=== PATIENT | male | born 1975 | race Caucasian/White ===

== ENCOUNTER 2019-02-01 05:55 | Emergency (ER) | payer SELFPAY ==
[2019-02-01 06:09] VITALS: BP 132/92; PULSE 65; TEMP 98.7; BMI 28.3
--- NOTE | 2019-02-01 06:24 | PDOC ---
History of Present Illness - General Chief Complaint: Choking Sensation Stated Complaint: FOREIGN BODY,THROAT Time Seen by Provider: 02/01/19 06:10 History Source: Patient Exam Limitations: No Limitations - History of Present Illness Initial Comments: 02/01/19 06:17 pt is a 43yo M with no significant PMH presenting to ED with sensation of chicken bone stuck in his throat. Pt said he was drinking chicken soup at around 10pm and said he threw away bigger pieces of bone. He said he tried swallowing oil, soaked bread but nothing helped. He woke up and tried to cough it out but it did not help. He feels the sensation on the R side of his throat and location has not changed. Denies shortness of breath, choking sensation, difficulty breathing, chest pain, syncope, throat pain, difficulty swallowing. PMH: none PSH: appendectomy Meds: none Allergies: nkda Past History - Past Medical History Allergies/Adverse Reactions: Allergies Allergy/AdvReac Type Severity Reaction Status Date / Time No Known Allergies Allergy Verified 02/01/19 06:07 Home Medications: Ambulatory Orders No Home Medications 0 dose .ROUTE UTDICT 05/19/13 - Suicide/Smoking/Psychosocial Hx Smoking Status: No Smoking History: Never smoked Have you smoked in the past 12 months: No Number of Cigarettes Smoked Daily: 0 Information on smoking cessation initiated: No Hx Alcohol Use: No Drug/Substance Use Hx: No Review of Systems - Review of Systems Constitutional: No: Symptoms Reported HEENTM: Yes: See HPI Respiratory: No: Cough, Shortness of Breath, Wheezing, Hemoptysis Cardiac (ROS): No: Chest Pain, Lightheadedness, Palpitations, Syncope ABD/GI: Yes: See HPI : No: Symptoms Reported Musculoskeletal: No: Symptoms Reported Integumentary: No: Symptoms Reported Neurological: No: Symptoms reported *Physical Exam - Vital Signs Last Vital Signs Temp Pulse Resp BP Pulse Ox 98.7 F 65 20 132/92 98 02/01/19 06:07 02/01/19 06:07 02/01/19 06:07 02/01/19 06:07 02/01/19 06:07 - Physical Exam General Appearance: Yes: Nourished, Appropriately Dressed. No: Apparent Distress HEENT: positive: EOMI, FRANCISCO, Pharynx Normal, Other (could not visualize foreign body). negative: Pharyngeal Erythema, Tonsillar Exudate, Tonsillar Erythema, Excessive drooling Neck: positive: Trachea midline, Supple, Other (no neck tenderness). negative: Lymphadenopathy (R), Lymphadenopathy (L) Respiratory/Chest: positive: Lungs Clear, Normal Breath Sounds Cardiovascular: positive: Regular Rhythm, Regular Rate, S1, S2. 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 intact, Fully Oriented, Alert, Normal Mood/ Affect, Normal Response, Motor Strength 5/5 Moderate Sedation - Procedure Monitoring Vital Signs: Procedure Monitoring Vital Signs Temperature 98.7 F 02/01/19 06:07 Pulse Rate 65 02/01/19 06:07 Respiratory Rate 20 02/01/19 06:07 Blood Pressure 132/92 02/01/19 06:07 O2 Sat by Pulse Oximetry (%) 98 02/01/19 06:07 ED Treatment Course - RADIOLOGY Radiology Studies Ordered: Category Date Time Status SOFT TISSUE NECK CT W/O CONTR [CT] Stat CT Scan 02/01/19 06:16 Ordered Medical Decision Making - Medical Decision Making 02/01/19 06:24 pt is a 43yo M with no significant PMH presenting to ED with sensation of chicken bone stuck in his throat. Pt said he was drinking chicken soup at around 10pm and said he threw away bigger pieces of bone. He said he tried swallowing oil, soaked bread but nothing helped. He woke up and tried to cough it out but it did not help. He feels the sensation on the R side of his throat and location has not changed. Denies shortness of breath, choking sensation, difficulty breathing, chest pain, syncope, throat pain, difficulty swallowing. Vitals: wnl PE: benign, could not visualize foreign body -CT neck low suspicion that fb is in the trachea. 02/01/19 06:44 No FB. Pt able to swallow without difficulty and breathe without difficulty. Will refer to GI. Pt can be dc home *DC/Admit/Observation/Transfer Diagnosis at time of Disposition: Foreign body sensation in throat - Discharge Dispostion Disposition: HOME Condition at time of disposition: Good Decision to Admit order: No - Referrals Referrals: Julien Green MD [Staff Physician] - - Patient Instructions Additional Instructions: You were seen in the emergency room today for sensation of something stuck in your throat. The CT scan did not show anything stuck. I recommend that you make an appointment with a GI doctor if you continue to have this sensation. Dr. Green You can take Tylenol or Motrin for pain. Come back to the emergency room if pain gets worse, you have difficulty swallowing, you have difficulty breathing, the neck looks swollen or if any new concerning symptom develops. Thank you - Post Discharge Activity
--- NOTE | 2019-02-01 06:24 | PDOC ---
Attending Attestation - Resident Resident Name: Obdulia Wild - ED Attending Attestation I have performed the following: I have examined & evaluated the patient, The case was reviewed & discussed with the resident, I agree w/resident's findings & plan - HPI HPI: 02/01/19 06:24 43-year-old male with a foreign body sensation to the right side of his throat, patient states he thinks he swallowed a chicken bone well eating soup. There's been no vomiting. - Physicial Exam PE: 02/01/19 06:25 Agree with resident exam - Medical Decision Making 02/01/19 06:25 43-year-old male with a foreign body sensation to throat Plain CT scan of the neck ordered Patient has had no vomiting and is able to tolerate liquids, likely discharge home pending CT scan results with outpatient follow-up
== END 2019-02-01 06:49 | disposition home or self-care (01) ==
LOC: JER 05:55
DX: R09.89 Other specified symptoms and signs involving the circulatory and respiratory systems (principal)
CPT/HCPCS: 70490-TC; 99283-25

== ENCOUNTER 2019-02-08 14:33 | Emergency (ER) | payer OTHER ==
[2019-02-08 14:40] VITALS: TEMP 99.3; BMI 28.3
--- NOTE | 2019-02-08 15:06 | PDOC ---
History of Present Illness - General Chief Complaint: Sore Throat Stated Complaint: LOSE VOICE Time Seen by Provider: 02/08/19 14:48 History Source: Patient Exam Limitations: No Limitations - History of Present Illness Initial Comments: 02/08/19 15:07 Patient came for evaluation of acute onset of swelling and severe pain to his throat. States in December was treated for severe strep throat with amoxicillin and Keflex to have resolved, January 19 came in with some itching episode which resolved, but states this morning woke up with another sore throat which is progressively worsened to where now has difficulty swallowing his secretions. Patient has obvious swelling to the outside of his face. Throat beefy-red with asthma large peritonsillar left abscess with obstruction to uvula and intubated midpoint pharynx area patient talking with a potato voice, and is febrile. DUe to the initial exam and potential airway compromise, moved pateint to Main ER for eval / treatment 02/08/19 15:22 Timing/Duration: 24 hours Severity: moderate, severe Associated Symptoms: denies: fever/chills Past History - Travel Traveled outside of the country in the last 30 days: No Close contact w/someone who was outside of country & ill: No - Past Medical History Allergies/Adverse Reactions: Allergies Allergy/AdvReac Type Severity Reaction Status Date / Time No Known Allergies Allergy Verified 02/01/19 06:07 Home Medications: Ambulatory Orders NK [No Known Home Medication] 02/08/19 COPD: No - Immunization History Immunization Up to Date: Yes - Suicide/Smoking/Psychosocial Hx Smoking Status: No Smoking History: Never smoked Have you smoked in the past 12 months: No Number of Cigarettes Smoked Daily: 0 Information on smoking cessation initiated: No Hx Alcohol Use: No Drug/Substance Use Hx: No Review of Systems - Review of Systems Able to Perform ROS?: Yes Is the patient limited Bulgarian proficient: Yes Constitutional: Yes: Symptoms Reported, See HPI, Chills, Fever, Loss of Appetite , Malaise HEENTM: Yes: Symptoms Reported, See HPI, Throat Pain, Throat Swelling, Mouth Pain, Difficulty Swallowing Respiratory: Yes: Symptoms reported, See HPI. No: Cough : No: Symptoms Reported Musculoskeletal: No: Symptoms Reported Integumentary: Yes: Symptoms Reported, See HPI Neurological: No: Symptoms reported All Other Systems: Reviewed and Negative *Physical Exam - Vital Signs Last Vital Signs Temp Pulse Resp BP Pulse Ox 99.3 F 92 H 20 140/81 100 02/08/19 14:36 02/08/19 14:36 02/08/19 14:36 02/08/19 14:36 02/08/19 14:36 - Physical Exam General Appearance: Yes: Nourished, Appropriately Dressed, Apparent Distress, Moderate Distress, Severe Distress HEENT: positive: FRANCISCO, Muffled/Hoarse voice, Pharyngeal Erythema, Other (hot potato voice left tonsil swollen with displacing the uvula). 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-XII NML intact, Fully Oriented, Alert, Normal Mood/ Affect, Normal Response, Motor Strength 5/5 Moderate Sedation - Procedure Monitoring Vital Signs: Procedure Monitoring Vital Signs Temperature 99.3 F 02/08/19 14:36 Pulse Rate 92 H 02/08/19 14:36 Respiratory Rate 20 02/08/19 14:36 Blood Pressure 140/81 02/08/19 14:36 O2 Sat by Pulse Oximetry (%) 100 02/08/19 14:36 ED Treatment Course - LABORATORY CBC & Chemistry Diagram: 02/08/19 15:35 02/08/19 15:35 *DC/Admit/Observation/Transfer Diagnosis at time of Disposition: Peritonsillar abscess - Discharge Dispostion Disposition: TRANSFER ACUTE CARE/OTHER HOSP Condition at time of disposition: Good - Referrals - Patient Instructions - Post Discharge Activity
[2019-02-08] MEDS ORDERED: DEXAMETHASONE SOD PHOSPHATE 10 MG/1 ML VIAL IVPUSH ONE (15:20)
[2019-02-08] MEDS ORDERED: CLINDAMYCIN 600MG PREMIX IVPB 600 MG/50 ML BAG IVPB ONE ×2 (15:21→16:22)
[2019-02-08] MEDS ORDERED: KETOROLAC TROMETHAMINE 30 MG/1 ML VIAL IVPUSH ONE (15:21)
[2019-02-08] MEDS ORDERED: DEXAMETHASONE SOD PHOSPHATE 10 MG/1 ML VIAL ONE (15:27)
[2019-02-08] MEDS ORDERED: KETOROLAC TROMETHAMINE 30 MG/1 ML VIAL ONE (15:27)
[2019-02-08 15:47] LABS: BASO % 0.5 % (0-2.0); EOS % 0.1 % (0-4.5); HEMOGLOBIN 13.9 GM/dL (11.7-16.9); MCH 27.7 pg (25.7-33.7); MCHC 33.9 g/dl (32.0-35.9); MEAN CELL VOLUME 81.8 fl (80-96); MEAN PLT VOLUME 8.2 fl (7.5-11.1); MONO % 4.5 % (3.8-10.2); NEUT % 89.9 % (42.8-82.8); PLATELET COUNT 265 K/MM3 (134-434); RBC 5.01 M/mm3 (4.00-5.60); RDW 14.7 % (11.9-15.9); WHITE BLOOD COUNT 17.7 K/mm3 (4.0-10.0)
[2019-02-08] MEDS ORDERED: SODIUM CHLORIDE 1,000 ML IV STA (16:26)
[2019-02-08 16:27] LABS: ALBUMIN 4.3 g/dl (3.4-5.0); ALK PHOS 97 U/L (45-117); ANION GAP 9 MMOL/L (8-16); BILIRUBIN,TOTAL 0.9 mg/dL (0.2-1); BLOOD UREA NITROGEN 17 mg/dL (7-18); CALCIUM 8.7 mg/dL (8.5-10.1); CHLORIDE 102 mmol/L (98-107); CO2 26 mmol/L (21-32); CREATININE 0.7 mg/dL (0.55-1.3); GLUCOSE,RANDOM 84 mg/dL (74-106); POTASSIUM 3.4 mmol/L (3.5-5.1); SGOT/AST 21 U/L (15-37); SGPT/ALT 33 U/L (13-61); SODIUM 136 mmol/L (136-145); TOT PROT 8.9 g/dl (6.4-8.2)
--- NOTE | 2019-02-08 16:39 | PDOC ---
History of Present Illness - General Chief Complaint: Sore Throat Stated Complaint: LOSE VOICE Time Seen by Provider: 02/08/19 14:48 History Source: Patient Exam Limitations: No Limitations - History of Present Illness Initial Comments: 02/08/19 16:37 Pt is a 43yo M with no significant PMH presenting to ED with complaints of sore throat that started this morning. Pt states it was not that bad when he woke up and went to work. While at work he felt his throat swelling up causing difficulty in speaking and swallowing and pain mostly on the L side of his throat. He had a similar episode in December but the pain was on the R side for which he was treated with abx. He endorses chills this morning, difficulty swallowing, sore throat, L sided facial pain up to the ear. Denies fever, cough , SOB, difficulty breathing, abdominal pain, n/v/d. PMD: PMH: none PSH: appendectomy Allergies: nkda Past History - Past Medical History Allergies/Adverse Reactions: Allergies Allergy/AdvReac Type Severity Reaction Status Date / Time No Known Allergies Allergy Verified 02/01/19 06:07 Home Medications: Ambulatory Orders NK [No Known Home Medication] 02/08/19 COPD: No - Immunization History Immunization Up to Date: Yes - Suicide/Smoking/Psychosocial Hx Smoking Status: No Smoking History: Never smoked Have you smoked in the past 12 months: No Number of Cigarettes Smoked Daily: 0 Information on smoking cessation initiated: No Hx Alcohol Use: No Drug/Substance Use Hx: No Review of Systems - Review of Systems Is the patient limited Divehi proficient: Yes Constitutional: Yes: Fever. No: Chills, Night Sweats, Weakness HEENTM: Yes: Throat Pain, Throat Swelling, Difficulty Swallowing. No: Ear Pain , Nose Pain, Nose Congestion, Hearing Loss, Mouth Pain Respiratory: No: Cough, Shortness of Breath, Stridor, Wheezing Cardiac (ROS): No: Chest Pain, Lightheadedness, Palpitations, Syncope ABD/GI: No: Constipated, Diarrhea, Nausea, Vomiting, Abdominal cramping : No: Symptoms Reported Musculoskeletal: No: Symptoms Reported Integumentary: No: Symptoms Reported Neurological: No: Symptoms reported *Physical Exam - Vital Signs Last Vital Signs Temp Pulse Resp BP Pulse Ox 99.3 F 92 H 20 140/81 100 02/08/19 14:36 02/08/19 14:36 02/08/19 14:36 02/08/19 14:36 02/08/19 14:36 - Physical Exam General Appearance: Yes: Nourished, Appropriately Dressed. No: Apparent Distress HEENT: positive: EOMI, FRANCISCO, TMs Normal, Hearing Grossly Normal, Other (no trismus). negative: Pharynx Normal (could not visualize all of oropharynx. soft palate swelling on L side, no tongue swelling, no submandibular swelling. ) , Tonsillar Exudate, Nasal Congestion, Rhinorrhea, Sinus Tenderness, Excessive drooling Neck: positive: Trachea midline, Supple, Lymphadenopathy (R), Lymphadenopathy (L ) Respiratory/Chest: positive: Lungs Clear, Normal Breath Sounds. negative: Crackles, Rales, Rhonchi, Stridor, Wheezing Cardiovascular: positive: Regular Rhythm, Regular Rate, S1, S2. negative: Edema , JVD, Murmur Vascular Pulses: Carotid (R): 2+, Carotid (L): 2+, Dorsalis-Pedis (R): 2+, Doralis-Pedis (L): 2+ Gastrointestinal/Abdominal: positive: Normal Bowel Sounds, Soft Musculoskeletal: negative: CVA Tenderness Extremity: positive: Normal Capillary Refill, Pelvis Stable. 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, Fully Oriented, Alert, Normal Mood/ Affect, Normal Response, Motor Strength 5/5 Moderate Sedation - Procedure Monitoring Vital Signs: Procedure Monitoring Vital Signs Temperature 99.3 F 02/08/19 14:36 Pulse Rate 92 H 02/08/19 14:36 Respiratory Rate 20 02/08/19 14:36 Blood Pressure 140/81 02/08/19 14:36 O2 Sat by Pulse Oximetry (%) 100 02/08/19 14:36 ED Treatment Course - LABORATORY CBC & Chemistry Diagram: 02/08/19 15:35 02/08/19 15:35 - ADDITIONAL ORDERS Additional order review: Laboratory Results 02/08/19 15:35 Sodium 136 Potassium 3.4 L Chloride 102 Carbon Dioxide 26 Anion Gap 9 BUN 17 Creatinine 0.7 Creat Clearance w eGFR 123.67 Random Glucose 84 Calcium 8.7 Total Bilirubin 0.9 AST 21 ALT 33 Alkaline Phosphatase 97 Total Protein 8.9 H Albumin 4.3 02/08/19 15:35 RBC 5.01 MCV 81.8 MCHC 33.9 RDW 14.7 MPV 8.2 D Neutrophils % 89.9 H D Lymphocytes % 5.0 L D Monocytes % 4.5 Eosinophils % 0.1 D Basophils % 0.5 - RADIOLOGY Radiology Studies Ordered: Category Date Time Status SOFT TISSUE NECK CT WITH CONTR [CT] Stat CT Scan 02/08/19 16:26 Ordered - Medications Given in the ED: ED Medications Discontinued Medications Generic Name Dose Route Start Last Admin Trade Name Samir PRN Reason Stop Dose Admin Dexamethasone Sodium Phosphate 10 mg 02/08/19 15:20 02/08/19 15:34 Decadron Injection - IVPUSH 02/08/19 15:21 10 mg ONCE ONE Administration Clindamycin Phosphate 600 mg in 50 mls @ 100 mls/hr 02/08/19 15:21 02/08/19 16:22 Cleocin 600 Mg Premix Ivpb - IVPB 02/08/19 15:50 100 mls/hr ONCE ONE Administration Protocol Ketorolac Tromethamine 30 mg 02/08/19 15:21 02/08/19 15:35 Toradol Injection - IVPUSH 02/08/19 15:22 30 mg ONCE ONE Administration Medical Decision Making - Medical Decision Making 02/08/19 16:40 Pt is a 43yo M with no significant PMH presenting to ED with complaints of sore throat that started this morning. Pt states it was not that bad when he woke up and went to work. While at work he felt his throat swelling up causing difficulty in speaking and swallowing and pain mostly on the L side of his throat. He had a similar episode in December but the pain was on the R side for which he was treated with abx. He endorses chills this morning, difficulty swallowing, sore throat, L sided facial pain up to the ear. Denies fever, cough , SOB, difficulty breathing, abdominal pain, n/v/d. Vitals: wnl PE: L soft palate swelling could not visualize oropharynx. 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 ordered CT neck soft tissue which shows L DRAFTING DETAILER with uvula involvement. CAnnot drain in eD due to inability to visualize and involvement of soft palate and uvula. Called Dr. Powell of ENT who said he could come tomorrow however pt needs draining today. PT agreed to transfer to [facility]. Spoke to Dr. Holguin who accepted pt. *DC/Admit/Observation/Transfer Diagnosis at time of Disposition: Peritonsillar abscess - Discharge Dispostion Disposition: TRANSFER ACUTE CARE/OTHER HOSP Condition at time of disposition: Good - Referrals - Patient Instructions - Post Discharge Activity
--- NOTE | 2019-02-08 17:40 | PDOC ---
Attending Attestation - HPI HPI: 02/08/19 19:39 The patient is a 43 year old male with no past medical history here today for evaluation of sore throat. Patient reports that it started this morning and felt swelling throughout the day which caused difficulty swallowing and speaking. He notes left sided facial pain which radiates up to his ear and also notes chills. Patient denies headache, lightheadedness. Denies fever. Denies chest pain, shortness of breath. Denies nausea, vomiting, diarrhea, abdominal pain. Allergies: NKDA Surgical history: appendectomy PCP: none - Physicial Exam PE: 02/08/19 19:39 Constitutional: Awake, alert, oriented. No acute distress. Head: Normocephalic. Atraumatic Eyes: PERRL. EOMI. Conjunctivae are not pale. ENT: +hot potato voice. +Soft palate swelling in left aspect of mouth. Unable to see uvula or left tonsil. No stridor in neck. Mucous membranes are moist and intact. Posterior pharynx without exudates or erythema. Neck: Supple. Full ROM. No lymphadenopathy. Cardiovascular: Regular rate. Regular rhythm. S1, S2 regular. Distal pulses are 2+ and symmetric. Pulmonary/Chest: No evidence of respiratory distress. Clear to auscultation bilaterally No wheezing, rales or rhonchi. Abdominal: Soft and non-distended. There is no tenderness. No rebound, guarding or rigidity. No organomegaly. No palpable masses. Good bowel sounds. Back: No CVA tenderness. Musculoskeletal: No edema. No cyanosis. No clubbing. Full range of motion in all extremities. Nocalf tenderness. Radial/pedal pulses are intact and 2+ bilaterally Skin: Skin is warm and dry. No petechiae. No purpura. Neurological: Alert and oriented to person, place, and time. Cranial nerves II -XII are grossly intact. Normal speech. Strength is grossly symmetric. No sensory deficits. Psychiatric: Good eye contact. Normal interaction, affect and behavior. - Medical Decision Making 02/08/19 19:39 Documentation prepared by LYNN Bales, acting as medical technologist blood bank for Colleen Nelson DO. <Barrera Hdez - Last Filed: 02/08/19 19:39> - Resident Resident Name: Obdulia Wild - ED Attending Attestation I have performed the following: I have examined & evaluated the patient, The case was reviewed & discussed with the resident, I agree w/resident's findings & plan, Exceptions are as noted - Medical Decision Making 02/08/19 17:40 I, Dr. Colleen Nelson, DO, attest that this document has been prepared under my direction and personally reviewed by me in its entirety. I further attest, that it accurately reflects all work, treatment, procedures and medical decision -making performed by me. 02/08/19 19:11 a/p: 43yo male with L posterior pharynx swelling -Pt with swelling to the L tonsillar region, and L uvula/soft palate -labs sent from [facility], pt pending ct -pt with hot potato voice, no ludwigs angina, no stridor, no elevated tongue, speaking in full sentences, tolerating secretions -pt with low grade temp -given decadron, toradol, clinda by [facility] 02/08/19 19:45 resident discussed the case with Dr. Pedraza who is unable to see the patient tonight, recommends transfer resident discussed the case with [facility] ENT dr. Holguin who accepts pt to [facility] transfer paperwork completed by the resident <Colleen Nelson - Last Filed: 02/08/19 19:48>
[2019-02-08 20:22] VITALS: BP 129/73; PULSE 108
== END 2019-02-08 20:23 | disposition short-term general hospital (02) ==
LOC: JER 14:33
PROC: 3E0337Z Introduction of Electrolytic and Water Balance Substance into Peripheral Vein, Percutaneous Approach (ICD-10-PCS; principal; 2019-02-08)
PROC: 3E03329 Introduction of Other Anti-infective into Peripheral Vein, Percutaneous Approach (ICD-10-PCS; 2019-02-08)
PROC: 3E0333Z Introduction of Anti-inflammatory into Peripheral Vein, Percutaneous Approach (ICD-10-PCS; 2019-02-08)
PROC: 3E0333Z Introduction of Anti-inflammatory into Peripheral Vein, Percutaneous Approach (ICD-10-PCS; 2019-02-08)
DX: J36 Peritonsillar abscess (principal)
CPT/HCPCS: 36415; 70491-TC; 80053; 85025; 87070; 87880; 99285-25; J1100; J7030

== ENCOUNTER 2021-12-31 22:32 | Emergency (ER) | payer SELFPAY ==
[2021-12-31 22:49] VITALS: BP 128/86; PULSE 68; TEMP 98.1; BMI 29.1
[2021-12-31] MEDS ORDERED: DEXAMETHASONE SOD PHOSPHATE 10 MG/1 ML VIAL PO ONE (23:37)
[2021-12-31] MEDS ORDERED: DEXAMETHASONE SOD PHOSPHATE 10 MG/1 ML VIAL ONE (23:43)
== END 2021-12-31 23:46 | disposition home or self-care (01) ==
LOC: JER 22:32
DX: J02.9 Acute pharyngitis, unspecified (principal)
CPT/HCPCS: 87651; 99283-25; J1100

== ENCOUNTER 2022-05-08 22:41 | Emergency (ER) | payer OTHER ==
[2022-05-08 22:55] VITALS: BP 155/95; PULSE 60; TEMP 98.6; BMI 29.1
== END 2022-05-09 01:10 | disposition home or self-care (01) ==
LOC: FER 22:41
DX: R51.9 Headache, unspecified (principal)
CPT/HCPCS: 70450-TC; 70486-TC; 99284-25

== ENCOUNTER 2022-05-09 09:18 | Emergency (ER) | payer OTHER ==
[2022-05-09 09:35] VITALS: BP 129/92; PULSE 65; TEMP 98.7; BMI 29.0
== END 2022-05-09 09:51 | disposition home or self-care (01) ==
LOC: FER 09:18
DX: G51.0 Bell's palsy (principal)
CPT/HCPCS: 99283-25

== ENCOUNTER 2024-04-20 08:06 | Emergency (ER) | payer OTHER ==
[2024-04-20 08:14] VITALS: BP 168/76; PULSE 60; RESP 18; TEMP 97.7; BMI 29.1
[2024-04-20] MEDS ORDERED: KETOROLAC TROMETHAMINE 30 MG/1 ML VIAL ONE (08:56)
[2024-04-20] MEDS ORDERED: ACETAMINOPHEN 500 MG TABLET (FP) ONE (08:56)
[2024-04-20] MEDS: KETOROLAC TROMETHAMINE 30 MG/1 ML VIAL IM ONE (09:00)
[2024-04-20] MEDS: ACETAMINOPHEN 500 MG TABLET (FP) PO ONE (09:00)
== END 2024-04-20 09:12 | disposition home or self-care (01) ==
LOC: JER 08:06
PROC: 3E0133Z Introduction of Anti-inflammatory into Subcutaneous Tissue, Percutaneous Approach (ICD-10-PCS; principal; 2024-04-20)
DX: M54.16 Radiculopathy, lumbar region (principal); M79.10 Myalgia, unspecified site; M79.672 Pain in left foot; M62.830 Muscle spasm of back; X50.0XXA Overexertion from strenuous movement or load, initial encounter; Y99.0 Civilian activity done for income or pay
CPT/HCPCS: 99284-25